=== PATIENT | female | born 1990 | race Caucasian/White ===

== ENCOUNTER 2018-06-23 17:31 | Emergency (ER) | payer SELFPAY ==
--- NOTE | 2018-06-23 17:43 | EDPHY ---
H & P Time Seen by Provider: 06/23/18 17:40 HPI/ROS: Chief complaint. Breast pain HPI. Patient is 27-year-old female presents with right breast pain for 1 day. She notes on the underside of the breast and sometimes to the medial aspect of the breast. She feels occasionally like it tugs on the inside of the nipple. It is somewhat worse with movement. No swelling, redness, discharge from the nipple. Denies trauma or injury. She is not breast feeding. She has an IUD and so she has intermittent spotting periods. No family history breast cancer. No chest discomfort inside her chest or shortness of breath. No fever or illness. No similar symptoms previously ROS 10 systems were reviewed and negative with the exception of the elements mentioned in the history of present illness Past Medical/Surgical History: IUD, otherwise healthy Social History: Single, nonsmoker, no alcohol Physical Exam: General Appearance: Alert pleasant well-developed female mild distress vital signs are stable Eyes: Pupils equal and round no pallor or injection. ENT, Mouth: Mucous membranes are moist. Respiratory: There are no retractions, lungs are clear to auscultation. Cardiovascular: Regular rate and rhythm. Gastrointestinal: Abdomen is soft and nontender, no masses, bowel sounds normal. Neurological: Awake and alert, sensory and motor exams grossly normal. Skin: Warm and dry, no rashes. Musculoskeletal: Neck is supple nontender. Examination of the right breast shows no obvious swelling or redness. No discharge from the nipple. No masses are palpable. No axillary lymphadenopathy. Extremities symmetrical, full range of motion. Psychiatric: Patient is oriented X 3, there is no agitation. Constitutional: Initial Vital Signs Temperature (C) 36.9 C 06/23/18 17:41 Heart Rate 77 06/23/18 17:41 Respiratory Rate 16 06/23/18 17:41 Blood Pressure 127/92 H 06/23/18 17:41 O2 Sat (%) 96 06/23/18 17:41 O2 Delivery Mode Room Air Allergies/Adverse Reactions: Sulfa (Sulfonamide Antibiotics) Allergy (Verified 06/23/18 17:44) Home Medications: Medication Instructions Recorded NK [No Known Home Meds] 06/23/18 Medical Decision Making - Diagnostics Imaging Results: Ultrasound right breast reviewed by me and discussed with Dr. Mosqueda is normal. ED Course/Re-evaluation: Ultrasound is recommended. Patient is concerned about cost. We are checking to try to find the cost of a breast ultrasound. We are unable to find the cost of breast ultrasound. The patient pulls up [facility] web site from 2017 that shows the cost of breast ultrasound is 200 dollars. She agrees to the ultrasound Re-evaluation at 7:10 p.m.. Patient is stable. She and I discussed imaging results. We discussed treatment plan including criteria for return importance of follow-up and further evaluation. She expresses understanding and agreement Differential Diagnosis: I considered infection, abscess, tumor. This may be musculoskeletal or an occult contusion of the breast. Departure - Departure Disposition: Home, Routine, Self-Care Clinical Impression: Breast pain Condition: Good Instructions: Breast Self Exam for Women (ED) Additional Instructions: Tylenol 1000 mg every 4-6 hours, ibuprofen 600 mg every 6 hr as needed for discomfort Return for worsening symptoms. [facility] Referrals: NONE *PRIMARY CARE P,. [Primary Care Provider] - As per Instructions Dejah Ojeda DO [Doctor of Osteopathy] - As per Instructions
[2018-06-23 19:47] VITALS: BP 120/87
== END 2018-06-23 19:42 | disposition home or self-care (01) ==
LOC: CED 17:31
DX: N64.4 Mastodynia (principal); Z97.5 Presence of (intrauterine) contraceptive device; Z88.2 Allergy status to sulfonamides
CPT/HCPCS: 76641-PO; 99284-ER